=== PATIENT | female | born 2000 | race Caucasian/White ===

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

== ENCOUNTER → 2024-09-08 08:21 | Outpatient (BNVA) | payer BC, MEDICAID, SELFPAY | PROVIDERS: PCP Registered Nurse; Visit Provider Nurse Practitioner Women's Health | DX: Z32.01 Encounter for pregnancy test, result positive (principal); Z3A.00 Weeks of gestation of pregnancy not specified; N92.6 Irregular menstruation, unspecified | CPT/HCPCS: 81025; 84443; 84702; 86850; 86900 ==

== ENCOUNTER → 2024-09-09 15:03 | Outpatient (BNVA) | payer BC, MEDICAID, SELFPAY | PROVIDERS: PCP Registered Nurse; Visit Provider Nurse Practitioner Women's Health | DX: Z34.91 Encounter for supervision of normal pregnancy, unspecified, first trimester (principal) | CPT/HCPCS: 76801 ==

== ENCOUNTER → 2024-09-18 11:02 | Outpatient (BNVA) | payer BC, MEDICAID, SELFPAY | PROVIDERS: PCP Registered Nurse; Visit Provider Nurse Practitioner Women's Health | DX: Z34.90 Encounter for supervision of normal pregnancy, unspecified, unspecified trimester (principal); Z3A.00 Weeks of gestation of pregnancy not specified | CPT/HCPCS: 80307; 84315; 84439; 84481; 85025; 86592; 86762; 86803; 86850; 86900; 87077; 87086; 87184; 87340; 87491; 87591; 87661; 87806 ==

== ENCOUNTER → 2024-10-01 10:04 | Outpatient (BNVA) | payer BC, MEDICAID, SELFPAY | PROVIDERS: PCP Registered Nurse; Visit Provider Obstetrics & Gynecology | DX: Z34.90 Encounter for supervision of normal pregnancy, unspecified, unspecified trimester (principal); Z3A.00 Weeks of gestation of pregnancy not specified | CPT/HCPCS: 84315; 88175 ==

== ENCOUNTER → 2024-11-04 07:58 | Outpatient (BNVA) | payer BC, MEDICAID, SELFPAY | PROVIDERS: PCP Registered Nurse; Visit Provider Nurse Practitioner Women's Health | DX: Z34.90 Encounter for supervision of normal pregnancy, unspecified, unspecified trimester (principal); Z3A.00 Weeks of gestation of pregnancy not specified | CPT/HCPCS: 84315; 84443; 87086 ==

== ENCOUNTER → 2024-11-24 14:35 | Outpatient (BNVA) | payer BC, MEDICAID, SELFPAY | PROVIDERS: PCP Registered Nurse; Visit Provider Obstetrics & Gynecology | DX: O26.892 Other specified pregnancy related conditions, second trimester (principal); Z3A.19 19 weeks gestation of pregnancy | CPT/HCPCS: 76805 ==

== ENCOUNTER → 2024-12-01 15:50 | Outpatient (BNVA) | payer BC, MEDICAID, SELFPAY | PROVIDERS: PCP Registered Nurse; Visit Provider Obstetrics & Gynecology | DX: Z34.90 Encounter for supervision of normal pregnancy, unspecified, unspecified trimester (principal) | CPT/HCPCS: 84315 ==

== ENCOUNTER → 2024-12-25 10:35 | Outpatient (BNVA) | payer MEDICAID, SELFPAY | PROVIDERS: PCP Registered Nurse; Visit Provider Nurse Practitioner Women's Health | DX: Z34.90 Encounter for supervision of normal pregnancy, unspecified, unspecified trimester (principal); R79.89 Other specified abnormal findings of blood chemistry; Z3A.10 10 weeks gestation of pregnancy | CPT/HCPCS: 84315; 84443; 87077; 87086; 87184 ==

== ENCOUNTER → 2025-01-19 09:18 | Outpatient (BNVA) | payer BC, MEDICAID, SELFPAY | PROVIDERS: PCP Registered Nurse; Visit Provider Obstetrics & Gynecology | DX: Z34.90 Encounter for supervision of normal pregnancy, unspecified, unspecified trimester (principal) | CPT/HCPCS: 82950; 84315; 85025 ==

== ENCOUNTER → 2025-02-05 09:41 | Outpatient (BNVA) | payer BC, MEDICAID, SELFPAY | PROVIDERS: PCP Registered Nurse; Visit Provider Nurse Practitioner Women's Health | DX: Z34.90 Encounter for supervision of normal pregnancy, unspecified, unspecified trimester (principal) | CPT/HCPCS: 84315 ==

== ENCOUNTER → 2025-02-11 08:50 | Outpatient (BNVA) | payer BC, MEDICAID, SELFPAY | PROVIDERS: PCP Registered Nurse; Visit Provider Obstetrics & Gynecology | DX: O26.893 Other specified pregnancy related conditions, third trimester (principal); Z3A.30 30 weeks gestation of pregnancy | CPT/HCPCS: 76816; 76819; 76820 ==

== ENCOUNTER → 2025-02-18 09:56 | Outpatient (BNVA) | payer BC, MEDICAID, SELFPAY | PROVIDERS: PCP Registered Nurse; Visit Provider Obstetrics & Gynecology | DX: Z34.90 Encounter for supervision of normal pregnancy, unspecified, unspecified trimester (principal) | CPT/HCPCS: 84315 ==

== ENCOUNTER 2025-02-25 07:51 | Outpatient (CLI) | payer BC, MEDICAID, SELFPAY ==
[2025-02-25 07:51] VITALS: BMI 19.8
[2025-02-25 07:57] VITALS: BP 125/58; PULSE 74
[2025-02-25 08:12] VITALS: BP 108/55; PULSE 64
== END 2025-02-25 08:24 | disposition home or self-care (01) ==
LOC: OPOB 07:52 → OBGYN 07:53
PROVIDERS: PCP Registered Nurse; Visit Provider Obstetrics & Gynecology
DX: O36.5990 Maternal care for other known or suspected poor fetal growth, unspecified trimester, not applicable or unspecified (principal); Z3A.00 Weeks of gestation of pregnancy not specified
CPT/HCPCS: 59025

== ENCOUNTER → 2025-03-03 12:59 | Outpatient (BNVA) | payer BC, MEDICAID, SELFPAY | PROVIDERS: PCP Registered Nurse; Visit Provider Nurse Practitioner Women's Health | DX: Z3A.10 10 weeks gestation of pregnancy (principal) | CPT/HCPCS: 76816 ==

== ENCOUNTER → 2025-03-11 15:47 | Outpatient (BNVA) | payer BC, MEDICAID, SELFPAY | PROVIDERS: PCP Registered Nurse; Visit Provider Nurse Practitioner Women's Health | DX: O26.893 Other specified pregnancy related conditions, third trimester (principal); Z3A.35 35 weeks gestation of pregnancy | CPT/HCPCS: 76819; 76820 ==

== ENCOUNTER → 2025-03-18 14:29 | Outpatient (BNVA) | payer BC, MEDICAID, SELFPAY | PROVIDERS: PCP Registered Nurse; Visit Provider Obstetrics & Gynecology | DX: Z34.90 Encounter for supervision of normal pregnancy, unspecified, unspecified trimester (principal) | CPT/HCPCS: 76819; 76820; 84315; 87081; 87086 ==

== ENCOUNTER 2025-03-22 06:05 | Inpatient (IN) | payer BC, MEDICAID, SELFPAY ==
[2025-03-22] VITALS (21 sets, daily range): BP systolic 102–136; BP diastolic 56–81; PULSE 43–73; RESP 16; TEMP 36.4–36.6; O2SAT 98–100; BMI 19.8
[2025-03-22 06:44] LABS: Basophils % 0.2 %; Eosinophils # 0.2 10^3/uL (0.0-0.8); Eosinophils % 1.5 %; Hematocrit 35.2 % (36-47); Lymphocytes # 2.7 10^3/uL (0.8-4.8); Lymphocytes % 21.7 %; Mean Corpuscular HGB Conc 31.5 g/dL (30-55); Mean Corpuscular Hemoglobin 24.3 pg (27-33); Mean Corpuscular Volume 77.2 fl (85-98); Monocytes # 0.7 10^3/uL (0.2-0.9); Monocytes % 5.2 %; Neutrophils # 8.91 10^3/uL (1.8-7.7); Neutrophils % 70.9 %; Nucleated Red Blood Cells % 0 %; Platelet Count 231 10^3/cmm (157-399); Red Blood Count 4.56 10^6/uL (3.85-5.65); Red Cell Distribution Width 15.4 % (12.1-15.1); White Blood Count 12.57 10^3/uL (3.29-11.43)
--- NOTE | 2025-03-22 07:23 | PM.OBGYHP ---
Providers/Chief Complaint Admitting Physician: Glen Hightower MD Primary DIRECTOR OF EARLY CHILDHOOD: Glen Hightower MD Primary Care Provider: MURTAZA Miller Chief Complaint: labor HPI DIRECTOR OF EARLY CHILDHOOD History of Present Illness Trisha Mcguire is a 24 year old female EDC April 13, 2025 At 36 w 6 d No complications Presented to L&D c/o painful uterine contractions since 3 a.m. today No bleeding, fluid leakage + movements POBHx: x two, uncomplicated Present Details : 3 Para: 2 Labs Rubella: Immune RPR: Negative GBS: Negative Medications/Allergies Home Medications ?Medication ?Instructions ?Recorded ?Confirmed ?Last Taken ?Type levothyroxine 50 mcg capsule 25 mcg (1/2 x 50 mcg) PO DAILY #30 11/05/24 03/22/25 Unknown Rx caps nitrofurantoin macrocrystal 100 mg 100 mg PO DAILY #60 caps 02/05/25 03/22/25 Unknown Rx capsule ondansetron HCl 4 mg tablet See Rx Instructions .Route 03/06/25 03/22/25 Unknown Rx .COMPLEX #30 tabs nitrofurantoin macrocrystal 100 mg 100 mg PO BID 7 days #14 caps 03/20/25 03/22/25 Unknown Rx capsule Allergies Allergy/AdvReac Type Severity Reaction Status Date / Time No Known Allergies Allergy Verified 03/22/25 07:01 PFSH DIRECTOR OF EARLY CHILDHOOD PFSH: Surgical History History of kidney surgery Ureteral reimplantation via lower abdominal Pfannenstiel type incision for ureteral reflux as a child History of back surgery Spinal fusion Family History Grandmother Ovarian cancer maternal, onset in her 50's Denies family history of Colon cancer Diabetes Clotting disorder Heart disease Hyperlipidemia Breast cancer Anesthesia complication Bleeding disorder Hypertension Uterine cancer Thyroid disease Stroke Social History Smoking and tobacco/nicotine status: never used tobacco/nicotine History History History 3 Term 2 0 Miscarriages/Ectopic 0 Living Children 2 Care KYM Calculator Estimated Delivery Date Method Current WG Current Estimate 04/13/25 LMP (Certain) 36w 6d Other Estimates 04/16/25 Ultrasound #1 36w 3d Specific Issues/Plans SUPERVISION OF NORMAL RECURRENT UTI IN : 09/18/24 +Nitrates in U/a, + for e. coli, treated with augmentin on 09/18/24, reculture on 11/04/24 showed + e.coli, treated with augmentin 11/06/24, repeat culture on 12/25/24 still + for e. coli, now on daily macrobid 100 mg ELEVATED TSH: 09/08/24 TSH 3.46, 11/04/24 5.15, started on levothyroxine 25 mcg FUNDAL HEIGHT LOW FOR DATES: measuring 27 cm at 30w3d, plan for growth u/s, EFW at 20 week u/s was 64th percentile IUGR: weekly BPPs, FW 9th percentile Vitals/I&O/Wt Last Vital Signs O2 Del Method Room Air 03/22/25 06:30 Weight last 48 hrs Weight 119 lb Physical Exam Narrative: Weight 125 lbs; 5?5? VS normal Patient arrived to L&D complete / +3 station Delivered, in bed, a vigorous male with one push Normal placenta and cord No perineal or vaginal lacerations No bleeding Data 03/22/25 06:18 Results Labs OB ([facility]): Obstetrics US 03/18/25 Blood Type A Positive 09/18/24 Antibody Screen Negative 09/18/24 Hct, (36-47) 35.2 % L Today Hgb, (11.27-16.99) 11.10 g/dL L Today Rho(D) Type Rh positive 09/18/24 Plt Count, (157-399) 231 10^3/cmm Today Hep Bs Antigen, (Nonreactive) Non-reactive 09/18/24 Hepatitis C Antibody, (Nonreactive) Non-reactive 09/18/24 Rubella IgG Antibody, (0.0-10.0) 51.5 IU/mL H 09/18/24 RPR, (Nonreactive) Nonreactive 09/18/24 HIV 1&2 Ab & HIV 1 Ag, (Non-Reactiv) Non-reactive 09/18/24 TSH, (0.27-4.20) 4.15 uIU/mL 12/25/24 Free T4, (0.82-1.77) 0.98 ng/dL 09/18/24 Glucose 1 Hr 50 gm, (85-140) 68 mg/dL L 01/19/25 Ser , Semi-Qnt 10370.00 mIU/mL 09/08/24 HCG, Qual, (Negative) Positive H 09/08/24 Urine Opiates Screen, (Negative) Negative ng/mL 09/18/24 Ur Barbiturates Screen, (Negative) Negative ng/mL 09/18/24 Ur Phencyclidine Scrn, (Negative) Negative ng/mL 09/18/24 Ur Amphetamines Screen, (Negative) Negative ng/mL 09/18/24 U Benzodiazepines Scrn, (Negative) Negative ng/mL 09/18/24 Urine Cocaine Screen, (Negative) Negative ng/mL 09/18/24 U Marijuana (THC) Screen, (Negative) Positive ng/mL H 09/18/24 Micro Urine Specimen 03/18/25 Pap Smear Interpret See note 10/01/24 A&P Assessment and plan (1) Active labor: 36 w 6 d Active labor Precipitous vaginal delivery PDMP PDMP Reviewed: Not Reviewed Attestations Medical Necessity Statement*: patient at 36 w 6 d, with active labor Coding Level of Care Code Acute Code for Chg Fwd Diagnoses Active labor
--- NOTE | 2025-03-22 07:26 | PM.DELIVERY ---
Delivery Note: Date of delivery: March 22, 2025 Pre-delivery diagnoses: 36 w 6 d active labor Post-delivery diagnoses: 36 w 6 d active labor precipitous vaginal delivery Procedure: vaginal delivery Op report anesthesia: None Delivering Physician: Glen Hightower MD Estimated blood loss (mL): 200 Findings: Patient arrived to L&D complete / +3 station Delivered, in bed, a vigorous male with one push Normal placenta and cord No perineal or vaginal lacerations No bleeding EBL: 200 cc Delivery: vaginal Post-Delivery Status: good History History History 3 Term 2 0 Miscarriages/Ectopic 0 Living Children 2 A&P Assessment and plan (1) Vaginal delivery: PDMP PDMP Reviewed: Not Reviewed Coding Level of Care Code Acute Code for Chg Fwd Diagnoses Vaginal delivery O80
--- NOTE | 2025-03-22 07:52 | PC.NURSE ---
0600 Patient presented to OB. Patient's mother stated I think my daughter is in labor. CLETA was attempting to ask triage questions and patient was vocalizing and moaning so CLETA escorted the patient back to OB3 expeditiously. YOUTA3 in room to assess. 0605 SVE cervix found from 7o'clock to 1o'clock, BBOW [address] Hightower and advised of imminent delivery and requested he come to OB department now. 0606 SROM, involuntary pushing. Coached on breathing techniques. 0608 IV started, labs drawn 0608 DUTCH called ER and requested TUREL return to assist 0610 Patient involuntarily pushing and large crown noted. Coached through panting to prevent perineal lacerations. Perineal support provided. 0611 Baby boy delivered ANDREA over intact perineum, no nuchal cord. Anterior shoulder delivered easily, followed by posterior shoulder and body. Baby was supported by DUTCH and placed on mother's abdomen, dried and stimulated. Strong cry and good tone noted immediately. [address] Hightower to room. [address] Hightower.
[2025-03-22 08:47] LABS: Amphetamines Screen Urine Negative (Negative); Barbiturates Screen Urine Negative (Negative); Benzodiazepines Screen Urine Negative (Negative); Cocaine Screen Urine Negative (Negative); Opiate Screen Urine Negative (Negative); PCP Screen Urine Negative (Negative); THC Screen Urine Positive (Negative)
[2025-03-22 09:01] LABS: Add Urine Microscopic? YES; Bilirubin Urine Negative (Negative); Blood Urine 3+ (Negative); Glucose Urine UA Negative (Normal); Hyaline Casts Urine 1.45 /lpf; Ketones Urine Negative (Negative); Leukocyte Esterase Urine 3+ (Negative); Nitrate Urine Negative (Negative); Protein Urine 2+ (Negative); RBC Urine >100 /hpf (0-2); Squamous Epithelial Cell Urine 0-5 /hpf (0-5); Urine Appearance Turbid (CLEAR); WBC Urine >100 /hpf (0-5); pH Urine 6.5 (5-7)
[2025-03-22 09:03] LABS: Urine Color Red (Yellow)
[2025-03-22 09:04] LABS: Add Urine Culture? Yes; Bacteria Urine 4+ /hpf
[2025-03-22] MEDS: ibuprofen 800 mg tablet PO ×3 (09:30→20:07)
[2025-03-22] MEDS: PRENATAL VIT NO.130/IRON/FOLIC 1 EACH TABLET PO (09:31)
--- OUTSIDE RECORDS SUMMARY | 2025-03-22 10:39 | XMS_ITS | Encounter Summary ---
Author Organization [facility] Address [address] [place] [address] Care Team Providers Care Bingo Attendant Name Role Phone Siomara Hanley DO Primary Care Provider [phone] Encounter Details Date Type Department Care Team (Latest Contact Info) Description 11/25/2004 Outpatient Historical [facility] [address] [place] [address] Jeff Blair MD [address] [place] [id number] ASTHMA UNSPECIFIED (Primary Dx) Social History Tobacco Use Types Packs/Day Years Used Date Smoking Tobacco: Never Assessed Comments Unknown Sex and Gender Information Value Date Recorded Sex Assigned at Not on file Legal Sex Female 3:22 AM WEDDING PLANNER Gender Identity Not on file Sexual Orientation Not on file documented as of this encounter Plan of Treatment Not on file documented as of this encounter Visit Diagnoses Diagnosis Unspecified asthma(493.90)- Primary Unspecified asthma documented in this encounter Additional Health Concerns Infection Onset Date Last Indicated Resolved Time MRSA Comment:Urine 08/22/18 08/22/2018 08/22/2018 documented as of this encounter Care Teams Bingo Attendant Relationship Specialty Start Date End Date Siomara Hanley DO [address] [place] [phone] PCP - General Family Practice 11/11/15 documented as of this encounter
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
--- NOTE | 2025-03-22 15:00 | PC.NURSE ---
Baby continues to not suck/feed. Nursing has tried to assist with latching to mothers breast, bottle with slow flow and regular flow nipple, and syringe feed. Baby will not latch/suck, no significant swallowing. Dr Rosas called to discuss, he will come in to assess baby and speak with mom.
--- NOTE | 2025-03-22 16:21 | PC.NURSE ---
5fr NG tube placed at 1550, taped at 22cm at nare. positive air auscultation. xray obtained and viewed by Dr Rosas, who states good to use for feeding. 10ML every 3 hours.
--- NOTE | 2025-03-22 16:24 | PC.NURSE ---
10ML Neosure fed at 1600 over 10 minutes. baby remains upright at this time.
[2025-03-22] MEDS: docusate sodium 100 mg Capsule PO (17:47)
[2025-03-22 18:37] LABS: Hematocrit 31.6 % (36-47); Mean Corpuscular HGB Conc 31.3 g/dL (30-55); Mean Corpuscular Hemoglobin 24.3 pg (27-33); Mean Corpuscular Volume 77.5 fl (85-98); Mean Platelet Volume 12.4 fL (7.4-10.4); Platelet Count 222 10^3/cmm (157-399); Red Blood Count 4.08 10^6/uL (3.85-5.65); Red Cell Distribution Width 15.4 % (12.1-15.1)
[2025-03-23 05:45] VITALS: BP 98/58; PULSE 64; RESP 16; TEMP 36.6; O2SAT 97
[2025-03-23] MEDS: ibuprofen 800 mg tablet PO ×3 (08:42→21:28)
[2025-03-23] MEDS: PRENATAL VIT NO.130/IRON/FOLIC 1 EACH TABLET PO (08:42)
[2025-03-23] MEDS: docusate sodium 100 mg Capsule PO ×2 (08:43→21:28)
[2025-03-23 10:43] VITALS: BP 103/67; PULSE 58; RESP 15; TEMP 36.6; TEMP 36.7
--- NOTE | 2025-03-23 12:40 | PM.OBGYDC ---
Discharge Providers PSYCHIATRIC ARNP Date of Admission: 03/22/25 06:05 Date of Discharge: 03/23/25 Attending Provider at Admission: Geln Hightower MD Attending Provider at Discharge: Glen Hightower MD Consults: none Primary PSYCHIATRIC ARNP: Glen Hightower MD Primary Care Provider: MURTAZA Miller Diagnoses at Discharge Discharge Diagnosis (1) Vaginal delivery: Details from hospital stay: 24 y.o. at 36 w 6 d no complications presented to L&D c/o painful uterine contractions patient progressed rapidly delivered vaginally a vigorous male there were no lacerations patient did well and was discharged to home on the first day Status: Inactive Reason for Visit Reason for Visit: labor Brief History: 24 y.o. at 36 w 6 d no complications presented to L&D c/o painful uterine contractions Hospital Course Hospital Course 24 y.o. at 36 w 6 d no complications presented to L&D c/o painful uterine contractions patient progressed rapidly delivered vaginally a vigorous male there were no lacerations patient did well and was discharged to home on the first day Information Peripartum Data: Infant Delivery Method: Vaginal Laceration description: None Episiotomy description: None complications: none Physical Exam Narrative: afebrile, VS normal comfortable, awake, alert Lungs: clear Cor: RRR Abd: soft, nontender. fundus firm Ext: no edema; nontender History History History 3 Term 2 0 Miscarriages/Ectopic 0 Living Children 2 Discharge Data Studies Completed and Pending Laboratory Results WBC 16.10 10^3/uL (3.29-11.43) H 03/22/25 18:25 RBC 4.08 10^6/uL (3.85-5.65) 03/22/25 18:25 Hgb 9.90 g/dL (11.27-16.99) L 03/22/25 18:25 Hct 31.6 % (36-47) L 03/22/25 18:25 MCV 77.5 fl (85-98) L 03/22/25 18:25 MCH 24.3 pg (27-33) L 03/22/25 18:25 MCHC 31.3 g/dL (30-55) 03/22/25 18:25 RDW 15.4 % (12.1-15.1) H 03/22/25 18:25 Plt Count 222 10^3/cmm (157-399) 03/22/25 18:25 MPV 12.4 fL (7.4-10.4) H 03/22/25 18:25 Neut % (Auto) 70.9 % 03/22/25 06:18 Lymph % (Auto) 21.7 % 03/22/25 06:18 Gibson % (Auto) 5.2 % 03/22/25 06:18 Eos % (Auto) 1.5 % 03/22/25 06:18 Baso % (Auto) 0.2 % 03/22/25 06:18 Neut # (Auto) 8.91 10^3/uL (1.8-7.7) H 03/22/25 06:18 Lymph # (Auto) 2.7 10^3/uL (0.8-4.8) 03/22/25 06:18 Gibson # (Auto) 0.7 10^3/uL (0.2-0.9) 03/22/25 06:18 Eos # (Auto) 0.2 10^3/uL (0.0-0.8) 03/22/25 06:18 Baso # (Auto) 0.0 10^3/uL (0.0-0.1) 03/22/25 06:18 Nucleated RBC % (auto) 0 % 03/22/25 06:18 Nucleated RBCs # 0.0 /100WBC 03/22/25 06:18 Urine Color Red (Yellow) A 03/22/25 08: Urine Appearance Turbid (CLEAR) A 03/22/25 08:29 Urine pH 6.5 (5-7) 03/22/25 08:29 Ur Specific [place] 1.010 (1.005-1.030) 03/22/25 08:29 Urine Protein 2+ (Negative) A 03/22/25 08: Urine Glucose (UA) Negative (Normal) 03/22/25 08: Urine Ketones Negative (Negative) 03/22/25 08: Urine Blood 3+ (Negative) A 03/22/25 08: Urine Nitrate Negative (Negative) 03/22/25 08: Urine Bilirubin Negative (Negative) 03/22/25 08: Urine Urobilinogen 1.0 mg/dL (Negative) 03/22/25 08:29 Ur Leukocyte Esterase 3+ (Negative) A 03/22/25 08:29 Urine RBC >100 /hpf (0-2) H 03/22/25 08:29 Urine WBC >100 /hpf (0-5) H 03/22/25 08:29 Ur Squamous Epith Cells 0-5 /hpf (0-5) 03/22/25 08:29 Amorphous Sediment Not Reportable 03/22/25 08:29 Urine Bacteria 4+ /hpf (NONE) H 03/22/25 08:29 Hyaline Casts 1.45 /lpf 03/22/25 08:29 Urine Opiates Screen Negative ng/mL (Negative) 03/22/25 08:29 Ur Barbiturates Screen Negative ng/mL (Negative) 03/22/25 08:29 Ur Phencyclidine Scrn Negative ng/mL (Negative) 03/22/25 08:29 Ur Amphetamines Screen Negative ng/mL (Negative) 03/22/25 08:29 U Benzodiazepines Scrn Negative ng/mL (Negative) 03/22/25 08:29 Urine Cocaine Screen Negative ng/mL (Negative) 03/22/25 08:29 U Marijuana (THC) Screen Positive ng/mL (Negative) H 03/22/25 08:29 Blood Type A Positive 03/22/25 06:18 Rho(D) Type Rh positive 03/22/25 06:18 Antibody Screen Negative 03/22/25 06:18 Vitals Last Vital Signs Temp 98.2 F 03/23/25 23:32 Pulse 71 03/23/25 23:32 Resp 15 03/23/25 23:32 BP 108/67 03/23/25 23:32 Pulse Ox 98 03/23/25 23:32 O2 Del Method Room Air 03/23/25 21:32 Results Labs OB ([facility]): Obstetrics US 03/18/25 Blood Type A Positive 03/22/25 Antibody Screen Negative 03/22/25 Hct, (36-47) 31.6 % L 03/22/25 Hgb, (11.27-16.99) 9.90 g/dL L 03/22/25 Rho(D) Type Rh positive 03/22/25 Plt Count, (157-399) 222 10^3/cmm 03/22/25 Hep Bs Antigen, (Nonreactive) Non-reactive 09/18/24 Hepatitis C Antibody, (Nonreactive) Non-reactive 09/18/24 Rubella IgG Antibody, (0.0-10.0) 51.5 IU/mL H 09/18/24 RPR, (Nonreactive) Nonreactive 09/18/24 HIV 1&2 Ab & HIV 1 Ag, (Non-Reactiv) Non-reactive 09/18/24 TSH, (0.27-4.20) 4.15 uIU/mL 12/25/24 Free T4, (0.82-1.77) 0.98 ng/dL 09/18/24 Glucose 1 Hr 50 gm, (85-140) 68 mg/dL L 01/19/25 Ser , Semi-Qnt 23205.00 mIU/mL 09/08/24 HCG, Qual, (Negative) Positive H 09/08/24 Urine Opiates Screen, (Negative) Negative ng/mL 03/22/25 Ur Barbiturates Screen, (Negative) Negative ng/mL 03/22/25 Ur Phencyclidine Scrn, (Negative) Negative ng/mL 03/22/25 Ur Amphetamines Screen, (Negative) Negative ng/mL 03/22/25 U Benzodiazepines Scrn, (Negative) Negative ng/mL 03/22/25 Urine Cocaine Screen, (Negative) Negative ng/mL 03/22/25 U Marijuana (THC) Screen, (Negative) Positive ng/mL H 03/22/25 Micro Urine Specimen 03/22/25 Pap Smear Interpret See note 10/01/24 Discharge Plan Discharge Patient Disposition: Home Condition: Stable Prescriptions: Continued levothyroxine 50 mcg capsule 25 mcg PO DAILY Qty: 30 0RF Rx Instructions: take one capsule daily nitrofurantoin macrocrystal 100 mg capsule 100 mg PO DAILY Qty: 60 0RF Rx Instructions: must administer with a meal/food ondansetron HCl 4 mg tablet See Rx Instructions .ROUTE .COMPLEX Qty: 30 0RF Dose Instruction: TAKE ONE TABLET BY MOUTH EVERY EIGHT hours NEEDED FOR NAUSEA AND VOMITING. Rx Instructions: TAKE ONE TABLET BY MOUTH EVERY EIGHT hours NEEDED FOR NAUSEA AND VOMITING. nitrofurantoin macrocrystal 100 mg capsule 100 mg PO BID 7 Days Qty: 14 0RF Rx Instructions: must administer with a meal/food Discharge Orders: Discharge Order (Routine); Ordered 03/23/25 Ordered By: Glen Hightower Referrals: Maria Elena Hernandez NP [Nurse Practitioner, PSYCHIATRIC ARNP] - 05/04/25 8:45 am Discharge Diet: Usual diet Discharge Activity: Increase activity as tolerated Patient Instructions: Depression (DC), Opioid Safety (DC), Preeclampsia and Eclampsia After Delivery (GEN), Hemorrhage (DC), OB Discharge Report, OB Food/Drug Interaction Guide, Opioid Safety, OB Home Care, OB Vaginal Deliveries - [facility], Abnormal Bleeding Activity Restrictions/Additional Instructions: Please call Sunday morning to [facility] to set up a follow-up appointment in six weeks. Discharge Attestations PSYCHIATRIC ARNP Time Spent in Discharge Care*: less than 30 min Coding Level of Care Code Acute Code for Chg Fwd Diagnoses Vaginal delivery O80
[2025-03-23 15:57] VITALS: BP 114/75; PULSE 58; RESP 15; O2SAT 98
[2025-03-23 21:32] VITALS: BP 108/67; PULSE 58; RESP 16
[2025-03-23 23:32] VITALS: BP 108/67; PULSE 71; RESP 15; TEMP 36.8; O2SAT 98
== END 2025-03-23 23:43 | disposition home or self-care (01) | DRG 807 ==
LOC: OPOB 06:19 → OBGYN 06:29 → OPOB 10:37 → OBGYN 10:37
PROVIDERS: Admitting Provider Obstetrics & Gynecology; PCP Registered Nurse; Visit Provider Obstetrics & Gynecology
DX: O60.14X0 Preterm labor third trimester with preterm delivery third trimester, not applicable or unspecified (principal); Z37.0 Single live birth; Z3A.36 36 weeks gestation of pregnancy
CPT/HCPCS: 36415; 59409; 80306; 81001; 85025; 85027; 86850; 86900; 87077; 87086; 87186; J9999